=== PATIENT | male | born 2000 ===

== ENCOUNTER 2022-10-20 18:32 | Outpatient (CLI) | payer OTHER, MEDICAID, SELFPAY | END 2022-10-20 18:33 | disposition home or self-care (01) | LOC: AMB 10-23 09:32 | PROVIDERS: Visit Provider Family Medicine | DX: R45.851 Suicidal ideations (principal) | CPT/HCPCS: A0425; A0429 ==

== ENCOUNTER 2022-10-20 18:58 | Emergency (ER) | payer OTHER, MEDICAID, SELFPAY ==
[2022-10-20] VITALS (14 sets, daily range): BP systolic 126–133; BP diastolic 87–97; PULSE 63–101; RESP 16; TEMP 36.7–36.9; O2SAT 95–97
--- NOTE | 2022-10-20 19:27 | ED.NURSE ---
Poison Control contacted with report of intentional ingestion of 12 tabs of 25mg Hydroxyzine. Monitoring time will be until 11PM tonight. Side effects with overdose of this medication include tachycardia and drowsiness.
[2022-10-20 20:20] LABS: Basophils Absolute Auto 0.03 K/uL (0.00-0.30); Basophils Percent Auto 0.3 % (0.0-3.0); Hematocrit 42.6 % (37.0-53.0); Hemoglobin* 14.8 gm/dL (13.5-17.5); Immature Granulocytes Abs Auto 0.01 K/uL (0.00-0.30); Immature Granulocytes Pct Auto 0.1 %; Lymphocytes Percent Auto 13.2 % (20-44); Mean Corpuscular HGB Conc 35 gm/dL (32-36); Mean Corpuscular Hemoglobin 29 pg (26-34); Mean Corpuscular Volume 85 fL (80-100); Monocytes Percent Auto 4.5 % (0.0-11.0); Neutrophils Percent Auto 81.9 % (42.0-72.0); Platelet Count* 297 K/uL (140-440); RDW Coefficient of Variation % 12.4 % (11.5-15.5); Red Blood Count 5.04 m/uL (4.30-5.90); White Blood Count* 9.59 K/uL (4.50-11.00)
[2022-10-20 20:21] LABS: Slide Review Reflex No
--- NOTE | 2022-10-20 20:32 | ED_ITS ---
HPI - Psych General Chief Complaint: Psychiatric Problem/Disorder Stated Complaint: Mental Health Time Seen by Provider: 10/20/22 19:00 History of Present Illness HPI Narrative: 22-year-old man brought by EMS to the emergency department after attempt at suicide by taking 300 mg of hydroxyzine about an hour prior to presentation in the emergency department. He admits that these are intermittent and he is impulsive which makes him think that he must have a diagnosis of bipolar similar to his sister. In addition hydroxyzine underlying diagnosis of anxiety he is to be taking regular Abilify but does not. It is unclear to me whether not it benefits him. Does have a history of prior overdose attempts and has engage in self-harm but nothing recently. Last time might have been a couple of years ago or. Does have a history of polysubstance use/abuse including methamphetamine. Has completed treatment. Has been drinking alcohol recently but has not today. Over the last week or so has an increasing difficulty in his relationship with his girlfriend now presumably ex-girlfriend. He is now concerned that she might be dating somebody else. She apparently disappeared the end of last week about 3 days ago saying that she was going to treatment which he later clarifies as ps ychiatric care and acknowledging that she had not been actively using. They have been texting. And today apparently formally broke up with him. He was in middle of texting her as his phone and now he says he is ?freaking out? just desperate to talk with her and some other people. Acknowledges he probably should talk with his family. He would appreciate talking with his mother as well. It seems as though he made some statement about the fact he was going to try to kill himself. Sister was somehow involved as well with subsequently police showing up at his door. 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 He had been on the job again for 3 months. Apparently had been prior dismissed from the same job. Related Data Home Medications Medication Instructions Recorded Confirmed No Known Home Medications 10/20/22 10/20/22 Allergies Allergy/AdvReac Type Severity Reaction Status Date / Time No Known Drug Allergies Allergy Verified 10/20/22 19:08 Review of Systems Status of ROS: Reports: 6 or more systems reviewed and unremarkable except as noted in History and below PFSH PFSH Social History Smoking Status: Current every day smoker Do you use any of these nicotine containing products: Vaping Products Second hand tobacco smoke exposure: No How often do you have a drink containing alcohol: never AUDIT-C Alcohol total score: 0 Non-prescribed substance use: marijuana (any form) Non-prescribed substance use details: today use Exam Narrative: Exam Narrative: Anxious. But generally poor eye contact. Long hair and pan well kempt. Generally thin but appropriately nourished. He becomes tearful during our conversation. Skin is warm and dry. Evidence of old self-inflicted cutting to forearms most noticeable initially on the right. Varying sized line tattoos. Cranial nerves 2-12 intact. There is no nystagmus. Pupils are equal in appropriately reactive had about 4 mm. Oropharynx is moist. Lungs are clear. Heart with elevated rate and rhythm no murmur rub or gallop. Abdomen is flat soft. Moving all extremities without difficulty. Well perfused. Thought content is depressed and affect appropriate. Const: Vital Signs, click to edit/add: Vital Signs - 24 hr 10/20/22 19:04 10/20/22 20:08 10/20/22 23:00 Temperature 98.1 F 98.4 F Pulse Rate 92 Pulse Rate [Left P ulse Oximeter] 101 H 63 Respiratory Rate 16 16 Blood Pressure [Ri ght Upper Arm] 126/87 133/97 H Pulse Oximetry 96 96 97 Oxygen Delivery Me thod Room Air Room Air 10/20/22 20:15 10/20/22 20:30 10/20/22 20:45 Temperature Pulse Rate 93 80 86 Pulse Rate [Left P ulse Oximeter] Respiratory Rate Blood Pressure [Ri ght Upper Arm] Pulse Oximetry 96 96 95 Oxygen Delivery Me thod 10/20/22 21:00 10/20/22 21:15 10/20/22 21:30 Temperature Pulse Rate 90 87 93 Pulse Rate [Left P ulse Oximeter] Respiratory Rate Blood Pressure [Ri ght Upper Arm] Pulse Oximetry 96 96 96 Oxygen Delivery Me thod 10/20/22 21:45 10/20/22 22:00 10/20/22 22:15 Temperature Pulse Rate 89 80 85 Pulse Rate [Left P ulse Oximeter] Respiratory Rate Blood Pressure [Ri ght Upper Arm] Pulse Oximetry 95 97 96 Oxygen Delivery Me thod 10/20/22 22:30 10/20/22 22:45 Temperature Pulse Rate 84 84 Pulse Rate [Left P ulse Oximeter] Respiratory Rate Blood Pressure [Ri ght Upper Arm] Pulse Oximetry 96 97 Oxygen Delivery Me thod Documenting provider has reviewed patient's vital signs: yes Course Vital Signs Vital signs: Initial Vital Signs Temperature 98.1 F 10/20/22 19:04 Temperature Source Temporal Artery Scan 10/20/22 19:04 Pulse Rate 101 H 10/20/22 19:04 Pulse Rhythm 10/20/22 19:04 Respiratory Rate 16 10/20/22 19:04 Blood Pressure 126/87 10/20/22 19:04 Blood Pressure Mean 100 10/20/22 19:04 Blood Pressure Position Sitting 10/20/22 19:04 Pulse Oximetry 96 10/20/22 19:04 Oxygen Delivery Method 10/20/22 19:04 Vital Signs Temperature 98.1 F 10/20/22 19:04 Pulse Rate 101 H 10/20/22 19:04 Respiratory Rate 16 10/20/22 19:04 Blood Pressure 126/87 10/20/22 19:04 Pulse Oximetry 96 10/20/22 19:04 Oxygen Delivery Method 10/20/22 19:04 Temperature 98.4 F 10/20/22 23:00 Pulse Rate 63 10/20/22 23:00 Respiratory Rate 16 10/20/22 23:00 Blood Pressure 133/97 H 10/20/22 23:00 Pulse Oximetry 97 10/20/22 23:00 Oxygen Delivery Method 10/20/22 23:00 MDM - Psych MDM Narrative Medical decision making narrative: Will be doing usual psychiatric labs. Need to clarify degree of outpatient cares available. Impulsivity certainly concerning here. At a minimum once cleared from ingestion I would anticipate repeat psychiatric evaluation. Will be monitored here in the emergency department in the meantime. Anticipate medically cleared at 11:00 pm provided no other events. Will offer phone so that he can call his mother. Mother arrived. I did talk with Johnnie and his mother simultaneously. Johnnie does have regular psychiatric appointments. Saw his prescriber last week without medication changes. He admits he lied about taking his medication, namely Abilify. The hydroxyzine that he took tonight was relatively new prescription but he does not normally take that regardless. Mother says she encourage is him to take his medications. Johnnie apparently does live with his parents at this time. Mother says that they have been struggling with all of this for so long. It seemed to me that his prior overdoses were also in the setting of substance abuse/addiction though later conversation revealed that he was actually sober at that time. Did discuss with DEC production controller this case. She did spend time in conversation with Johnnie and his mother Sosa. Reviewing again with Johnnie, he tells me that he does not feel like killing himself at this time that it was just impulsive. That he had been in conversation with his sister and friends. Things just got overwhelming. He describes later how he is currently looking for work. Is anticipating maybe even change of job focus. He is aware of the crisis line and has use them apparently successfully in the past. He had anticipated talking with his therapist today but by the time he got the news that he and his girlfriend would truly be breaking up, it was after hours at his therapist's clinic. DEC assessment concludes also that okay to close outpatient follow-up. Safety plan to be further delineated in their notes. Jeb does food service worker hospital. She will manage his medications in the short term. Johnnie assures that he is through the worst of it. They both feel safe returning home. EKG at 5 hours post ingestion reviewed by me looks to show normal sinus at a rate of 63. Vitals have been stable over this period of observation in the ER. Please see patient discharge plan Lab Data Attestation: I reviewed the patient's lab results. Labs: Lab Results 10/20/22 10/20/22 10/20/22 Range/Units 19:54 19:55 20:13 WBC 9.59 (4.50-11.00) K/uL RBC 5.04 (4.30-5.90) m/uL Hgb 14.8 (13.5-17.5) gm/dL Hct 42.6 (37.0-53.0) % MCV 85 (80-100) fL MCH 29 (26-34) pg MCHC 35 (32-36) gm/dL RDW Coeff of Danyell 12.4 (11.5-15.5) % Plt Count 297 (140-440) K/uL Neut % (Auto) 81.9 H (42.0-72.0) % Lymph % (Auto) 13.2 L (20-44) % Cass % (Auto) 4.5 (0.0-11.0) % Eos % (Auto) 0.0 (0.0-7.0) % Baso % (Auto) 0.3 (0.0-3.0) % Neut # (Auto) 7.90 H (1.7-7.0) K/uL Lymph # (Auto) 1.30 (0.90-2.90) K/uL Cass # (Auto) 0.40 (0.00-0.90) K/UL Eos # (Auto) 0.00 (0.00-0.50) K/uL Baso # (Auto) 0.03 (0.00-0.30) K/uL Sodium 138 (135-149) mmol/L Potassium 4.1 (3.6-5.1) mmol/L Chloride 105 (96-114) mmol/L Carbon Dioxide 27 (20-32) mmol/L BUN 13 (5-24) mg/dL Creatinine 0.7 (0.5-1.5) mg/dL Estimated Creat Clear 128.52 Estimated GFR 134 ml/min Glucose 149 H (60-115) mg/dL Calcium 9.3 (8.4-10.6) mg/dL Salicylates < 1.0 L (1.0-10) mg/dL Acetaminophen < 10.0 L (10.0-30.0) ug/mL Ethyl Alcohol < 0.01 L (0.01-0.03) % SARS-CoV-2 (PCR) (Negative) 10/20/22 Range/Units 20:13 WBC (4.50-11.00) K/uL RBC (4.30-5.90) m/uL Hgb (13.5-17.5) gm/dL Hct (37.0-53.0) % MCV (80-100) fL MCH (26-34) pg MCHC (32-36) gm/dL RDW Coeff of Danyell (11.5-15.5) % Plt Count (140-440) K/uL Neut % (Auto) (42.0-72.0) % Lymph % (Auto) (20-44) % Cass % (Auto) (0.0-11.0) % Eos % (Auto) (0.0-7.0) % Baso % (Auto) (0.0-3.0) % Neut # (Auto) (1.7-7.0) K/uL Lymph # (Auto) (0.90-2.90) K/uL Cass # (Auto) (0.00-0.90) K/UL Eos # (Auto) (0.00-0.50) K/uL Baso # (Auto) (0.00-0.30) K/uL Sodium (135-149) mmol/L Potassium (3.6-5.1) mmol/L Chloride (96-114) mmol/L Carbon Dioxide (20-32) mmol/L BUN (5-24) mg/dL Creatinine (0.5-1.5) mg/dL Estimated Creat Clear Estimated GFR ml/min Glucose (60-115) mg/dL Calcium (8.4-10.6) mg/dL Salicylates (1.0-10) mg/dL Acetaminophen (10.0-30.0) ug/mL Ethyl Alcohol (0.01-0.03) % SARS-CoV-2 (PCR) Negative SARS-CoV-2 (Negative) Discharge Plan Discharge Clinical Impression: Other social stressor, Intentional overdose, Suicidal ideation Patient Disposition: Home w/ Parent or Adult Condition: Improved Additional Instructions: Please restart your prescribed medications this evening or least tomorrow morning. Might want to discuss alternate medications at follow-up if these truly are a challenge for you for some reason or unhelpful if you can actually say that after period of taking them regularly. Easier to be honest about this I think. Tomorrow please call to move up your therapy appointment. As discussed might be good to meet weekly in the short term. Continue to stay sober. Try to stay busy. Try to get a little heart pumping exercise in daily. Get regular and quality sleep. Try to see the morning sunlight. Best wishes in your job search. Continue to confide in your sister, mother. If talking to them, your therapist, your friends and if necessary reaching out to the crisis line, you feel unsafe, please return to the emergency department. Prescriptions: No Action No Known Home Medications Follow Up/Referrals: Provider,Not a Local [Primary Care Provider] - Stand Alone Forms: [employer] Info Instructions
[2022-10-20 20:33] LABS: Chloride* 105 mmol/L (96-114); Potassium* 4.1 mmol/L (3.6-5.1); Sodium* 138 mmol/L (135-149)
[2022-10-20 20:35] LABS: Creatinine* 0.7 mg/dL (0.5-1.5); Est. Creatinine Clearance* 128.52; Estimated Glomerular Filt Rate 134 ml/min
[2022-10-20 20:36] LABS: Blood Urea Nitrogen* 13 mg/dL (5-24); Calcium* 9.3 mg/dL (8.4-10.6); Carbon Dioxide* 27 mmol/L (20-32); Glucose* 149 mg/dL (60-115)
[2022-10-20 20:39] LABS: Acetaminophen* < 10.0 ug/mL (10.0-30.0); Ethanol* < 0.01 % (0.01-0.03)
[2022-10-20 20:59] LABS: SARS PCR* Negative SARS-CoV-2 (Negative)
[2022-10-20 21:00] LABS: Salicylate* < 1.0 mg/dL (1.0-10)
[2022-10-20] MEDS: NICOTINE 21 MG PATCH 1 PATCH TRANSDERMA (21:49)
--- NOTE | 2022-10-20 22:31 | ED.NURSE ---
[facility] [place] poison control signs off on patient stating cleared at 2300 if no tachycardia or drowsiness.
== END 2022-10-20 23:53 | disposition home or self-care (01) ==
PROVIDERS: Emergency Provider Family Medicine
DX: R45.851 Suicidal ideations (principal); T65.892A Toxic effect of other specified substances, intentional self-harm, initial encounter; F43.9 Reaction to severe stress, unspecified
CPT/HCPCS: 36415; 80048; 80143; 80179; 80306; 82077; 85025; 87635; 93005; 99284; S4990